=== PATIENT | female | born 1995 | race African-American/Black ===

== ENCOUNTER 2016-10-13 15:20 | Emergency (ER) | payer SELFPAY ==
[2016-10-13 15:31] VITALS: BMI 27.4
--- NOTE | 2016-10-13 15:41 | PDOC ---
History of Present Illness - General History Source: Patient Exam Limitations: No Limitations - History of Present Illness Initial Comments: 10/13/16 15:44 The patient is a 21-year-old woman A0 with a past medical history of Chlamydia (treated) who presents to the emergency department for further evaluation of a vaginal bleeding since yesterday. She stated that yesterday she noted some vaginal spotting for which she used a tampon. This morning, she got up and felt heavy vaginal bleeding, as she soaked up an entire tampon pack with noted clots. Her last menstrual period was 09/18 and was normal. She does admit in engaging in sexual activity without protection and reports a possibility that she might be . She reports associated symptoms of bilateral lower abdominal pain. No fever, chills, chest pain. lightheadedness headaches, nausea , vomiting, diarrhea, urinary frequency/hesitancy, dysuria, flank pain, vaginal discharge. Allergies: Ibuprofen. Naproxen. Aspirin Past Surgical History: None reported Social History: No tobacco. Social EtOH use. No recreational drug use. <Norma Gallegos - Last Filed: 10/13/16 15:52> - General History Source: Patient, Old Records Exam Limitations: No Limitations <Adeola Whitley - Last Filed: 10/13/16 15:57> <Bonnie Larsen - Last Filed: 10/13/16 17:34> - General Chief Complaint: Vaginal Bleeding Stated Complaint: VAGINAL BLEEDING Time Seen by Provider: 10/13/16 15:36 Past History <Norma Gallegos - Last Filed: 10/13/16 15:52> - Past Medical History Other medical history: NONE - Psycho/Social/Smoking Cessation Hx Anxiety: No Suicidal Ideation: No Smoking History: Never smoked Hx Alcohol Use: Yes (SOCIAL) Drug/Substance Use Hx: No Substance Use Type: None <Adeola Whitley - Last Filed: 10/13/16 15:57> <Bonnie Larsen - Last Filed: 10/13/16 17:34> - Past Medical History Allergies/Adverse Reactions: Allergies Allergy/AdvReac Type Severity Reaction Status Date / Time aspirin Allergy Swelling Verified 10/13/16 15:31 naproxen Allergy Swelling Verified 10/13/16 15:31 ibuprofen AdvReac Swelling Verified 10/13/16 15:31 Home Medications: Ambulatory Orders NK [No Known Home Medication] 10/13/16 Review of Systems - Review of Systems Able to Perform ROS?: Yes Comments:: 10/13/16 15:45 GENERAL/CONSTITUTIONAL: No fever or chills. No weakness. HEAD, EYES, EARS, NOSE AND THROAT: No change in vision. No ear pain or discharge. No sore throat. CARDIOVASCULAR: No chest pain or shortness of breath. RESPIRATORY: No cough, wheezing, or hemoptysis. GASTROINTESTINAL: No nausea, vomiting, diarrhea or constipation. GENITOURINARY: Yes: Vaginal bleeding. No dysuria, frequency, or change in urination. MUSCULOSKELETAL: No joint or muscle swelling or pain. No neck or back pain. SKIN: No rash NEUROLOGIC: No headache, vertigo, loss of consciousness, or change in strength/ sensation. ENDOCRINE: No increased thirst. No abnormal weight change. HEMATOLOGIC/LYMPHATIC: No anemia, easy bleeding, or history of blood clots. ALLERGIC/IMMUNOLOGIC: No hives or skin allergy. <Norma Gallegos - Last Filed: 10/13/16 15:52> *Physical Exam - Vital Signs Last Vital Signs Temp Pulse Resp BP Pulse Ox 99.0 F 55 L 20 133/80 100 10/13/16 15:27 10/13/16 15:27 10/13/16 15:27 10/13/16 15:27 10/13/16 15:27 - Physical Exam Comments: 10/13/16 15:45 GENERAL: Awake, alert, and fully oriented, in no acute distress HEAD: No signs of trauma EYES: PERRLA, EOMI, sclera anicteric, conjunctiva clear ENT: Auricles normal inspection, hearing grossly normal, nares patent, oropharynx clear without exudates. Moist mucosa NECK: Normal ROM, supple, no lymphadenopathy, JVD, or masses LUNGS: Breath sounds equal, clear to auscultation bilaterally. No wheezes, and no crackles HEART: Regular rate and rhythm, normal S1 and S2, no murmurs, rubs or gallops ABDOMEN: Soft, nontender, normoactive bowel sounds. No guarding, no rebound. No masses PELVIC: Small amount of blood in the vault minimal active bleeding. No CMT. No uterine enlargement. External os is opened. Internal os is closed. EXTREMITIES: Normal range of motion, no edema. No clubbing or cyanosis. No cords, erythema, or tenderness NEUROLOGICAL: Cranial nerves II through XII grossly intact. Normal speech, normal gait <Norma Gallegos - Last Filed: 10/13/16 15:52> - Vital Signs Last Vital Signs Temp Pulse Resp BP Pulse Ox 99.0 F 55 L 20 133/80 100 10/13/16 15:27 10/13/16 15:27 10/13/16 15:27 10/13/16 15:27 10/13/16 15:27 <Adeola Whitley - Last Filed: 10/13/16 15:57> - Vital Signs Last Vital Signs Temp Pulse Resp BP Pulse Ox 99.0 F 55 L 20 133/80 100 10/13/16 15:27 10/13/16 15:27 10/13/16 15:27 10/13/16 15:27 10/13/16 15:27 <Bonnie Larsen - Last Filed: 10/13/16 17:34> ED Treatment Course - LABORATORY CBC & Chemistry Diagram: 10/13/16 15:58 - ADDITIONAL ORDERS Additional order review: Laboratory Results 10/13/16 10/13/16 10/13/16 15:58 15:58 15:41 Beta HCG, Quant < 1.0 Urine Color Urine Appearance Urine pH Urine Protein Urine Glucose (UA) Urine Ketones Urine Blood Urine Nitrite Urine Bilirubin Urine Urobilinogen Ur Leukocyte Esterase Urine RBC Urine WBC Ur Epithelial Cells Urine Mucus Urine HCG, Qual Negative Blood Type O POSITIVE Antibody Screen Negative 10/13/16 15:37 Beta HCG, Quant Urine Color Ltyellow Urine Appearance Clear Urine pH 6.0 Urine Protein Negative Urine Glucose (UA) Negative Urine Ketones Negative Urine Blood 2+ H Urine Nitrite Negative Urine Bilirubin Negative Urine Urobilinogen Negative Ur Leukocyte Esterase Negative Urine RBC 9 Urine WBC 3 Ur Epithelial Cells Moderate Urine Mucus Rare Urine HCG, Qual Blood Type Antibody Screen 10/13/16 15:58 RBC 4.32 MCV 80.1 MCHC 32.0 RDW 14.2 MPV 8.7 Neutrophils % 58.5 Lymphocytes % 28.9 Monocytes % 8.2 Eosinophils % 3.1 Basophils % 1.3 <Bonnie Larsen - Last Filed: 10/13/16 17:34> Medical Decision Making - Medical Decision Making 10/13/16 15:57 21-year-old female with no significant past medical history acid menstrual period September 18 presents the emergency department with one day history of heavy vaginal bleeding with passage of clots. The patient has no complaints of dizziness, shortness of breath, syncope, chest pain. Differential diagnosis includes but is not limited to: , abnormal , menorrhagia, metromenorrhagia, anemia. Plan: 1. Urine analysis and urine 2. CBC 3. Beta-hCG 4. Observe and reevaluate 5. If positive will get a pelvic ultrasound; if negative will discharge home with [facility] follow-up as an outpatient. <Adeola Whitley - Last Filed: 10/13/16 15:57> *DC/Admit/Observation/Transfer - Attestations Scribe Attestion: 10/13/16 15:45 Documentation prepared by Norma Gallegos, acting as medical record clerk for Adeola Whitley MD. <Noram Gallegos - Last Filed: 10/13/16 15:52> - Attestations Physician Attestion: 10/13/16 15:59 I, Dr. Adeola Whitley, attest that the scribes documentation that appears above has been prepared under my direction and personally reviewed by me in its entirety. I confirmed that the note above accurately reflects all work, treatment, procedures, and medical decision-making performed by me. <Adeola Whitley - Last Filed: 10/13/16 15:57> <Bonnie Larsen - Last Filed: 10/13/16 17:34> Diagnosis at time of Disposition: Vaginal bleeding - Discharge Dispostion Disposition: HOME Condition at time of disposition: Stable - Patient Instructions Printed Discharge Instructions: DI for Vaginal Bleeding Additional Instructions: please follow up with your trench pipe layer helper
[2016-10-13 16:05] LABS: BASOPHIL 1.3 % (0-2.0); EOSINOPHIL 3.1 % (0-4.5); MCH 25.6 pg (25.7-33.7); MEAN CELL VOLUME 80.1 fl (80-96); MEAN PLT VOLUME 8.7 fl (7.5-11.1); NEUTROPHILS 58.5 % (42.8-82.8); PLATELET COUNT 209 K/MM3 (134-434); RDW 14.2 % (11.6-15.6); WHITE BLOOD COUNT 5.6 K/mm3 (4.0-10.0)
[2016-10-13 16:05] LABS: URINE APPEARANCE CLEAR; URINE BILIRUBIN NEGATIVE (NEGATIVE); URINE COLOR LTYELLOW; URINE GLUCOSE (UA) NEGATIVE (NEGATIVE); URINE KETONE NEGATIVE (NEGATIVE); URINE LEUK ESTERASE NEGATIVE (NEGATIVE); URINE NITRITE NEGATIVE (NEGATIVE); URINE PROTEIN NEGATIVE (NEGATIVE); URINE UROBILINOGEN NEGATIVE E.U./dl (0.2-1.0)
[2016-10-13 16:16] LABS: URINE BLOOD 2+ (NEGATIVE)
[2016-10-13 16:24] LABS: URINE MUCUS RARE; URINE RBC 9 /hpf (0-3); URINE WBC 3 /hpf (3-5)
[2016-10-13 18:13] VITALS: BP 121/76; PULSE 71; TEMP 98.6
== END 2016-10-13 17:55 | disposition home or self-care (01) ==
LOC: JER 15:20
DX: N92.0 Excessive and frequent menstruation with regular cycle (principal)
CPT/HCPCS: 36415; 81003; 81015; 84702; 84703; 85025; 86850; 86900; 86901; 99283-25